=== PATIENT | male | born 1990 | race Caucasian/White ===

== ENCOUNTER 2019-04-11 14:25 | Emergency (ER) | payer BC ==
[~2019-04-11] VITALS: Ht 180.3 cm; Wt 97.5 kg
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
[2019-04-11 14:39] VITALS: BP 122/81
--- NOTE | 2019-04-11 14:43 | NUR ---
ED Nurse Note: ERMD at bedside
[2019-04-11] MEDS ORDERED: Isovue-300 100ml vial INJ PRN (14:45)
--- NOTE | 2019-04-11 14:54 | NUR ---
ED Nurse Note: IV on right AC established; blood collected and sent to lab. Patient tolerated well
[2019-04-11 15:09] LABS: BASOPHILS % (AUTO) 0.9 % (0.0-2.0); EOSINOPHILS % (AUTO) 2.2 % (0.0-3.0); HEMATOCRIT 40.4 % (42.0-52.0); HEMOGLOBIN 14.5 G/DL (14.2-18.0); LYMPHOCYTES % (AUTO) 31.3 % (20.0-45.0); MEAN CORPUSCULAR VOLUME 84 FL (80-99); MONOCYTES % (AUTO) 6.6 % (1.0-10.0); PLATELET COUNT 202 K/UL (150-450); RED BLOOD COUNT 4.83 M/UL (4.70-6.10); RED CELL DISTRIBUTION WIDTH 9.7 % (11.6-14.8); WHITE BLOOD COUNT 8.5 K/UL (4.8-10.8)
[2019-04-11 15:12] LABS: ANION GAP 6 mmol/L (5-15); BLOOD UREA NITROGEN 17 mg/dL (7-18); CALCIUM 8.6 MG/DL (8.5-10.1); CARBON DIOXIDE 31 MMOL/L (21-32); CHLORIDE 103 MMOL/L (98-107); CREATININE 0.9 MG/DL (0.55-1.30); POTASSIUM 3.8 MMOL/L (3.5-5.1); SODIUM 140 MMOL/L (136-145)
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
[2019-04-11 15:17] LABS: ALANINE AMINOTRANSFERASE 44 U/L (12-78); ALBUMIN 4.3 G/DL (3.4-5.0); ALBUMIN/GLOBULIN RATIO 1.3 (1.0-2.7); ALKALINE PHOSPHATASE 79 U/L (46-116); ASPARTATE AMINO TRANSFERASE 14 U/L (15-37); BILIRUBIN,TOTAL 0.7 MG/DL (0.2-1.0)
--- NOTE | 2019-04-11 15:30 | NUR ---
ED Nurse Note: pt taken down to CT via w/c; in stable condition
--- NOTE | 2019-04-11 15:40 | NUR ---
ED Nurse Note: Pt back from CT in stable condition
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
--- NOTE | 2019-04-11 16:27 | NUR ---
ER DISCHARGE NOTE: Patient is cleared to be discharged per ERMD, pt is aox4, on room air, with stable vital signs. pt was given dc instructions, pt was able to verbalize understanding, pt id band and iv site removed without complications. pt is able to ambulate with steady gait. pt took all belongings.
[2019-04-11] MEDS ORDERED: Tetanus/Diptheria/Pertussis IM ONE (16:30)
[2019-04-11] MEDS ORDERED: Bacitracin Oint UD TOPIC ONE (16:30)
[2019-04-11 16:40] VITALS: BP 119/80
== END 2019-04-11 16:27 | disposition home or self-care (01) ==
LOC: EMR 16:10
DX: S30.1XXA Contusion of abdominal wall, initial encounter (principal); V49.9XXA Car occupant (driver) (passenger) injured in unspecified traffic accident, initial encounter; Y92.410 Unspecified street and highway as the place of occurrence of the external cause; Z88.0 Allergy status to penicillin; Z23 Encounter for immunization
CPT/HCPCS: 36415; 74177; 80053; 85025; 90471; 90715; 99284; Q9967